=== PATIENT | female | born 1980 | race Two or more races ===

== ENCOUNTER 2023-02-20 14:16 | Inpatient (IN) | payer OTHER ==
[~2023-02-20] VITALS: Ht 162.6 cm; Wt 79.8 kg
[2023-03-03 13:22] LABS: HEMATOCRIT 36.1 % (36.0-45.00); HEMOGLOBIN 12.2 g/dL (12.0-15.00); MEAN CELL VOLUME 91.1 fL (80.00-100.00); MEAN CORPUSCULAR HEMOGLOBIN 30.8 pg (27.00-32.0); MEAN CORPUSCULAR HGB CONC 33.8 g/dl (32.0-36.0); PLATELET COUNT 186 K/uL (150-450); RED BLOOD COUNT 3.97 M/uL (4.00-6.00); RED CELL DISTRIBUTION WIDTH 14.6 % (11.5-14.5)
[2023-03-03 13:36] LABS: PH,URINE 6.5 (5.0-8.0); URINE APPEARANCE Clear; URINE BILIRRUBIN Negative (NEGATIVE); URINE BLOOD Negative; URINE COLOR Yellow; URINE GLUCOSE Negative (NEGATIVE); URINE LEUKOCYTE Negative; URINE NITRATE Negative; URINE PROTEIN Negative (NEGATIVE); URINE UROBILINOGEN 0.2 E.U./dl
[2023-03-03 13:37] LABS: URINE BACTERIA 172.6 uL (0.0-1933); URINE EPITHELIAL CELLS 9.4 uL (0.0-38.8); URINE RBC 12.3 uL (0.0-20.8); URINE WBC 4.4 uL (0.0-23.2)
[2023-03-03 14:00] LABS: ALBUMIN 2.9 gm/dL (3.4-5.0); BILIRUBIN TOTAL 0.29 mg/dL (0.3-1.2); CALCIUM 9.4 mg/dL (8.5-10.1); CREATININE SERUM 0.71 mg/dL (0.55-1.02); GFR 90.72; GLOBULINA 3.7 G/DL (2.4-3.5); POTASSIUM 4.32 mEq/L (3.5-5.1); TOTAL PROTEIN 6.6 gm/dL (6.4-8.2)
[2023-03-03] MEDS ORDERED: PRENATAL TABLE1 EAC1 PO (14:14)
[2023-03-03] MEDS ORDERED: HYDROXYZINE PA100 MG PO (14:14)
[2023-03-03] MEDS ORDERED: LAMICTAL200 M1 PO (14:14)
[2023-03-03] MEDS ORDERED: UNISOM25 MG PO (14:15)
[2023-03-03] MEDS ORDERED: VALTREX1000 MG PO (14:16)
[2023-03-03 14:27] LABS: INR < 0.93; PARTIAL THROMBOPLASTIN TIME 24.8 SECONDS (22.0-34.0); PROTHROMBIN TIME 9.6 SECONDS (9.0-11.5)
[2023-03-05 07:09] LABS: HEMATOCRIT 30.9 % (36.0-45.00); HEMOGLOBIN 10.6 g/dL (12.0-15.00); MEAN CELL VOLUME 92.1 fL (80.00-100.00); MEAN CORPUSCULAR HEMOGLOBIN 31.7 pg (27.00-32.0); MEAN CORPUSCULAR HGB CONC 34.4 g/dl (32.0-36.0); PLATELET COUNT 156 K/uL (150-450); RED BLOOD COUNT 3.36 M/uL (4.00-6.00); RED CELL DISTRIBUTION WIDTH 13.8 % (11.5-14.5)
== END 2023-03-06 14:07 | disposition home or self-care (01) | DRG 806 ==
LOC: OB/GYN 03-02 14:16 → LDR 03-03 11:09 → OB/GYN 03-04 16:51
PROVIDERS: Obstetrics & Gynecology Gynecology; ADMIT Obstetrics & Gynecology; ATTEND Obstetrics & Gynecology
PROC: 4A1HXCZ Monitoring of Products of Conception, Cardiac Rate, External Approach (ICD-10-PCS; 2023-03-03)
PROC: 10E0XZZ Delivery of Products of Conception, External Approach (ICD-10-PCS; principal; 2023-03-04)
PROC: 0UQG7ZZ Repair Vagina, Via Natural or Artificial Opening (ICD-10-PCS; 2023-03-04)
DX: O71.4 Obstetric high vaginal laceration alone (principal); G97.49 Accidental puncture and laceration of other nervous system organ or structure during other procedure; O74.8 Other complications of anesthesia during labor and delivery; Z37.0 Single live birth; Z3A.40 40 weeks gestation of pregnancy; Z20.822 Contact with and (suspected) exposure to COVID-19

== ENCOUNTER 2023-05-28 11:31 | Outpatient (CLI) | payer OTHER ==
[~2023-05-28 11:31] MED LIST: HYDROXYZINE PA100 MG PO; LAMICTAL200 M1 PO; PRENATAL TABLE1 EAC1 PO; UNISOM25 MG PO; VALTREX1000 MG PO
== END 2023-05-28 11:41 | disposition home or self-care (01) ==
LOC: SONOGRAMA 11:31
PROVIDERS: ATTEND Obstetrics & Gynecology Gynecology
DX: N63.0 Unspecified lump in unspecified breast (principal); Z12.31 Encounter for screening mammogram for malignant neoplasm of breast; N64.4 Mastodynia; N60.11 Diffuse cystic mastopathy of right breast; Z88.8 Allergy status to other drugs, medicaments and biological substances

== ENCOUNTER 2024-08-07 08:46 | Emergency (ER) | payer OTHER ==
[~2024-08-07] VITALS: Ht 162.6 cm; Wt 56.7 kg
[2024-08-07] MEDS ORDERED: CLONAZEPAM0.5 MG PO (08:59)
[2024-08-07] MEDS ORDERED: AMBIEN10 MG PO (09:00)
[2024-08-07] MEDS ORDERED: ANTICONCEPTIVAS (09:00)
== END 2024-08-07 11:14 | disposition home or self-care (01) ==
LOC: ER 08:51
DX: G89.11 Acute pain due to trauma (principal); M25.571 Pain in right ankle and joints of right foot; Z88.3 Allergy status to other anti-infective agents

== ENCOUNTER 2024-10-27 13:23 | Outpatient (CLI) | payer OTHER ==
[~2024-10-27 13:23] MED LIST changes: +AMBIEN10 MG PO; +ANTICONCEPTIVAS; +CLONAZEPAM0.5 MG PO
== END 2024-10-27 13:31 | disposition home or self-care (01) ==
LOC: MAMO-SONO 13:23
PROVIDERS: ATTEND Obstetrics & Gynecology
DX: N60.11 Diffuse cystic mastopathy of right breast (principal); N60.12 Diffuse cystic mastopathy of left breast